=== PATIENT | female | born 1970 | race Hispanic/Latino ===

== ENCOUNTER 2017-05-09 22:11 | Emergency (ER) | payer OTHER ==
[~2017-05-09] VITALS: Ht 154.9 cm; Wt 55.3 kg
[~2017-05-09 22:11] MED LIST: CYCLOBENZAPRINE10 M1 PO
--- NOTE | 2017-05-09 22:52 | ED INFLUENZA/URI COMPLAINT ---
History of Present Illness General Chief Complaint: General Adult Stated Complaint: "IT FEELS LIKE THE FLU" Source: patient Exam Limitations: no limitations Vital Signs & Intake/Output Vital Signs & Intake/Output Vital Signs Date Time Temp Pulse Resp B/P B/P Pulse O2 O2 Flow FiO2 Mean Ox Delivery Rate 05/10 0024 99.3 99 18 105/69 96 Room Air 05/09 2313 99 Room Air 05/09 2220 101.5 97 18 114/82 99 Room Air ED Intake and Output 05/10 0000 05/09 1200 Intake Total Output Total Balance Patient 122 lb Weight Weight Estimated Measurement Method Allergies Coded Allergies: ampicillin (Intermediate, RASH, ITCH, TINGLING TO LIPS 02/24/17) Reconcile Medications Cyclobenzaprine HCl 10 MG TABLET 1 TAB PO Q8P PAIN OR SPASM Oseltamivir Phosphate (Tamiflu) 75 MG CAPSULE 1 CAP PO BID INFLUENZA Triage Note: RECEIVED 47 YO FEMALE C/O COUGHING X 3 DAYS, FEVER, NAUSEA, VOMITING ALL PO. PT REPORTS GENERALIZED ABDOMINAL PAIN AND POUNDING H/A. PT WITH 101.5 TEMP IN TRIAGE. PT REPORTS PAIN ALL OVER, CHEST PAIN WITH COUGHING. PT VOMITING ALL PO Triage Nurses Notes Reviewed? yes HPI: Patient presents with URI symptoms for the past 3 days. High fevers, myalgias since yesterday. Positive anorexia. Positive nausea and dry heaving. Last night she states that she was hallucinating because of her fevers. Patient denies any headache or blurry vision. She has a nonproductive cough. Past History Travel History Traveled to [place] past 21 day No Medical History Any Pertinent Medical History? 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 No Review of Systems Review of Systems Constitutional: Reports: see HPI, chills, fever. EENTM: Reports: no symptoms. Respiratory: Reports: see HPI, cough. Cardiovascular: Reports: no symptoms. GI: Reports: see HPI, nausea. Genitourinary: Reports: no symptoms. Musculoskeletal: Reports: see HPI, muscle pain. Skin: Reports: no symptoms. Neurological/Psychological: Reports: see HPI. Hematologic/Endocrine: Reports: no symptoms. Immunologic/Allergic: Reports: no symptoms. All Other Systems: Reviewed and Negative Physical Exam Physical Exam General Appearance: well developed/nourished, alert, awake, anxious, moderate distress Head: atraumatic, normal appearance Eyes: Bilateral: PERRL, EOMI. Ears, Nose, Throat: normal ENT inspection, DRY MUCUS MEMBRTANES Neck: normal inspection, supple, full range of motion Respiratory: normal breath sounds, chest non-tender, no respiratory distress, lungs clear Cardiovascular: regular rate/rhythm, normal peripheral pulses Gastrointestinal: normal bowel sounds, soft, non-tender, no organomegaly Extremities: normal inspection, normal capillary refill, normal range of motion, no edema Neurologic/Psych: no motor/sensory deficits, awake, alert, oriented x 3, normal gait, normal mood/affect Skin: intact, normal color, warm/dry Lymphatic: no anterior cervical facundo Core Measures Sepsis Present: No Sepsis Focused Exam Completed? No Progress Differential Diagnosis: influenza Plan of Care: Orders Procedure Date/time Status RAPID VIRAL INFLUENZA A 05/09 2223 Complete Microbiology 05/09 2228 NASOPHARYN: Influenza Virus A & B Rapid Smear - COMP INFLUENZA TYPE A Initial ED EKG: none Departure Departure Disposition: HOME OR SELF CARE Condition: Stable Clinical Impression Primary Impression: Influenza Referrals: Gabriela DING,Melissa Ogden (PCP/Family) Additional Instructions: DRINK PLENTY OF FLUIDS TAKE TAMIFLU TWICE A DAY FOR 5 DAYS RETURN IF SYMPTOMS WORSEN OR FOR ANY CONCERNS Departure Forms: Customer Survey General Discharge Information Prescriptions: Current Visit Scripts Oseltamivir Phosphate (Tamiflu) 1 CAP PO BID #10 CAP
[2017-05-09] MEDS ORDERED: TAMIFLU75 M1 PO (22:58)
[2017-05-10 06:30] VITALS: BP 113/72
== END 2017-05-10 07:00 ==
LOC: ERH 22:11
DX: J11.1 Influenza due to unidentified influenza virus with other respiratory manifestations (principal); Z72.0 Tobacco use; R11.2 Nausea with vomiting, unspecified
CPT/HCPCS: 87804; 87804-59; 96361; 96374; 96375; 99291; J0131; J1200; J1885; J2405; J2550; J3101

== ENCOUNTER 2017-05-18 16:56 | Emergency (ER) | payer OTHER ==
[~2017-05-18] VITALS: Ht 154.9 cm; Wt 55.3 kg
[~2017-05-18 16:56] MED LIST changes: +TAMIFLU75 M1 PO
--- NOTE | 2017-05-18 19:50 | ED SKIN/ALLERGY COMPLAINT ---
History of Present Illness General Chief Complaint: Skin Rash/ Abcess Stated Complaint: SEEN BY WALK-IN,SKIN INFECTION,ANTIBIOTIC NOT WORK Source: patient Exam Limitations: no limitations Vital Signs & Intake/Output Vital Signs & Intake/Output Vital Signs Date Time Temp Pulse Resp B/P B/P Pulse O2 O2 Flow FiO2 Mean Ox Delivery Rate 05/18 1703 97.3 86 18 123/86 98 Room Air Room Air Allergies Coded Allergies: ampicillin (Intermediate, RASH, ITCH, TINGLING TO LIPS 02/24/17) Reconcile Medications Clindamycin HCl (Cleocin HCl) 300 MG CAPSULE 1 CAP PO TID cellulitis Cyclobenzaprine HCl 10 MG TABLET 1 TAB PO Q8P PAIN OR SPASM Mupirocin Calcium (Bactroban) 2 % CREAM..G. 1 VENKATESH TOP TID cellulitis apply to affected area(s) Oseltamivir Phosphate (Tamiflu) 75 MG CAPSULE 1 CAP PO BID INFLUENZA Triage Note: PT TO ED WITH C/O STAFF INFECTION TO NOSE, BEING TREATED WITH 2 ANTIBIOTIC SINCE Sunday, NOT WORKING AND SENT IN TO ED. Triage Nurses Notes Reviewed? yes Onset: Gradual Duration: day(s): Timing: recent history Severity: moderate Location: face HPI: 47YO female presents to emergency department complaining of skin infection to nose. Patient states that she was seen and evaluated at a walk-in clinic 4 days ago for redness at the tip of her nose. Patient was started on Bactrim and acyclovir. Patient went back to urgent care today for reevaluation as her skin infection has not improved. Patient complaining of significant pain to the tip of her. Patient has been applying warm compresses. She denies fevers, chills, abdominal pain, vomiting, sore throat, ear pain, visual changes. Past History Travel History Traveled to [place] past 21 day No Medical History Any Pertinent Medical History? 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 No Review of Systems Review of Systems Constitutional: Reports: no symptoms. EENTM: Reports: no symptoms. Respiratory: Reports: no symptoms. Cardiovascular: Reports: no symptoms. GI: Reports: no symptoms. Genitourinary: Reports: no symptoms. Musculoskeletal: Reports: no symptoms. Skin: Reports: see HPI. Neurological/Psychological: Reports: no symptoms. Hematologic/Endocrine: Reports: no symptoms. Immunologic/Allergic: Reports: no symptoms. All Other Systems: Reviewed and Negative Physical Exam Physical Exam General Appearance: well developed/nourished, no apparent distress, alert, awake Head: atraumatic, normal appearance Eyes: Bilateral: normal appearance, PERRL, EOMI. Ears, Nose, Throat: normal pharynx, hearing grossly normal, ERYTHEMA AND TENDERNESS TO DISTAL NOSE WITH 3 1MM PUSTULES TO RIGHT NOSTRIL, TMs WNL Neck: normal inspection, supple, full range of motion Respiratory: normal breath sounds, no respiratory distress, lungs clear Cardiovascular: regular rate/rhythm Gastrointestinal: normal bowel sounds, soft, non-tender, no organomegaly Back: normal inspection, normal range of motion Extremities: normal inspection, normal range of motion Neurologic/Psych: awake, alert, oriented x 3 Skin: see erythema of nose as described above Progress Differential Diagnosis: abscess/cellulitis, allergic reaction, angioedema, contact dermatitis, shingles Plan of Care: Orders Procedure Date/time Status BLOOD CULTURE 05/18 1705 Active COMPREHENSIVE METABOLIC PANEL 05/18 1705 Complete CBC WITHOUT DIFFERENTIAL 05/18 1705 Complete Laboratory Tests 05/18/172035: CBC w Diff NO MAN DIFF REQ, RBC 4.42, MCV 92.3, MCH 31.1 H, MCHC 33.8, RDW 14.9 H, MPV 8.8, Gran % 70.3, Lymphocytes % 17.6 L, Monocytes % 8.6, Eosinophils % 3.2, Basophils % 0.3, Absolute Granulocytes 4.4, Absolute Lymphocytes 1.1 L, Absolute Monocytes 0.5, Absolute Eosinophils 0.2, Absolute Basophils 0 05/18/17 1749: Anion Gap 14, Estimated GFR > 60, BUN/Creatinine Ratio 21.4, Glucose 86, Calcium 9.5, Total Bilirubin 0.2, AST 17, ALT 26, Alkaline Phosphatase 68, Total Protein 7.4, Albumin 4.6, Globulin 2.8, Albumin/Globulin Ratio 1.6 Microbiology 05/18 1749 BLOOD: Blood Culture - RECD 05/18 1720 BLOOD: Blood Culture - RECD Patient given IV clindamycin here in the emergency department. Patient's vital signs are stable, blood work is within normal limits, she is nontoxic appearing. Cellulitis is limited to distal nose. Patient started on PO Clinda to take in addition to Bactrim. She was also prescribed Bactroban to apply topically. Patient to continue warm compresses. Patient will follow-up in 2 days for reevaluation. This patient appears well, we'll trial with different antibiotic as an outpatient. She will return with worsening symptoms or concerns. The patient agrees with the plan of care. Departure Departure Disposition: HOME OR SELF CARE Condition: Stable Clinical Impression Primary Impression: Cellulitis Qualifiers: Site of cellulitis: face Qualified Code: L03.211 - Cellulitis of face Referrals: Gabriela DING,Melissa Ogden (PCP/Family) Additional Instructions: Begin clindamycin antibiotics tomorrow morning. Continue current prescriptions as prescribed by urgent care. Continue to apply warm compress daily. You were also prescribed Bactroban ointment to apply inside your nose. Follow-up with your primary care physician on Sunday. If you cannot see primary care physician by Sunday please return to the emergency department or urgent care for reevaluation. Return sooner with any worsening symptoms or other concerns. Please note that there might be incidental findings in your evaluation that are unrelated to the current emergency department visit. Please notify your primary care doctor about this emergency department visit in order to obtain and review all of the testing performed so that these incidental findings can be monitored as needed. If you had an x-ray performed, please understand that some fractures may not be seen on the initial set of x-rays. If your symptoms persist you might need a repeat set of x-rays to check for such a fracture. If you had a laceration evaluated, please understand that foreign bodies such as glass or wood may not be visible to the naked eye or on plain x-rays. If the wound becomes red, swollen, increasingly more painful or if there is any drainage from the wound, please have it reevaluated by a physician for the possibility of a retained foreign body. If you're unable to follow up as outlined in the discharge instructions please return to the emergency department. Thank you for choosing the [facility] Emergency Department for your care. It was a pleasure to serve you today. Departure Forms: Customer Survey General Discharge Information Prescriptions: Current Visit Scripts Clindamycin HCl (Cleocin HCl) 1 CAP PO TID #21 CAP Mupirocin Calcium (Bactroban) 1 VENKATESH TOP TID #30 GM apply to affected area(s)
[2017-05-18 20:43] LABS: ABSOLUTE BASOPHIL COUNT 0 /CUMM (0.0-0.2); ABSOLUTE EOSINOPHIL COUNT 0.2 /CUMM (0.0-0.7); ABSOLUTE GRANULOCYTE CT 4.4 /CUMM (1.4-6.5); ABSOLUTE LYMPH COUNT 1.1 /CUMM (1.2-3.4); ABSOLUTE MONOCYTE COUNT 0.5 /CUMM (0.10-0.60); BASOPHIL % 0.3 % (0.0-2.0); EOSINOPHIL % 3.2 % (0-5); GRANULOCYTE % 70.3 % (42.2-75.2); HEMATOCRIT 40.7 % (37-47); MEAN CORPUSCULAR HGB 31.1 PG (27.0-31.0); MEAN CORPUSCULAR HGB CONC 33.8 G/DL (33.0-37.0); MEAN CORPUSCULAR VOLUME 92.3 FL (81.0-99.0); MEAN PLATELET VOLUME 8.8 FL (7.4-10.4); PLATELET COUNT 321 /CUMM (130-400); RBC DISTRIBUTION WIDTH 14.9 % (11.5-14.5); RED BLOOD CELL CT 4.42 /CUMM (4.20-5.40); WHITE BLOOD CELL COUNT 6.3 /CUMM (4.8-10.8)
[2017-05-18] MEDS ORDERED: CLEOCIN HCL300 M1 PO (22:03)
[2017-05-18] MEDS ORDERED: BACTROBAN15 GM TOP (22:03)
[2017-05-18 22:40] VITALS: BP 133/67
== END 2017-05-18 22:41 ==
LOC: ERH 16:56
PROVIDERS: Emergency Medicine
DX: J34.0 Abscess, furuncle and carbuncle of nose (principal); F17.210 Nicotine dependence, cigarettes, uncomplicated
CPT/HCPCS: 87040; 96374

== ENCOUNTER 2017-08-22 18:35 | Emergency (ER) | payer OTHER ==
[~2017-08-22] VITALS: Ht 154.9 cm; Wt 59.9 kg
[~2017-08-22 18:35] MED LIST changes: +BACTROBAN15 GM TOP; +CLEOCIN HCL300 M1 PO
[2017-08-22] MEDS ORDERED: DELTASONE20 MG PO (20:18)
[2017-08-22] MEDS ORDERED: HYDROXYZINE HCL50 M1 PO (20:18)
[2017-08-22] MEDS ORDERED: CIPRO500 M1 PO (20:18)
--- NOTE | 2017-08-22 20:19 | ED SKIN/ALLERGY COMPLAINT ---
History of Present Illness General Chief Complaint: Allergy Symptoms Stated Complaint: ALLERGIC REACTION Source: patient Exam Limitations: no limitations Vital Signs & Intake/Output Vital Signs & Intake/Output Vital Signs Date Time Temp Pulse Resp B/P B/P Pulse O2 O2 Flow FiO2 Mean Ox Delivery Rate 08/22 2111 98.1 78 16 113/68 98 Room Air 08/22 1836 98.6 98 18 126/88 98 Room Air ED Intake and Output 08/23 0000 08/22 1200 Intake Total 50 Output Total Balance 50 Intake, Oral 50 Patient 132 lb Weight Weight Reported by Patient Measurement Method Allergies Coded Allergies: ampicillin (Intermediate, RASH, ITCH, TINGLING TO LIPS 02/24/17) Reconcile Medications Ciprofloxacin HCl (Cipro) 500 MG TABLET 1 TAB PO BID UTI Clindamycin HCl (Cleocin HCl) 300 MG CAPSULE 1 CAP PO TID cellulitis Cyclobenzaprine HCl 10 MG TABLET 1 TAB PO Q8P PAIN OR SPASM Hydroxyzine Hydrochloride (Atarax) 50 MG TAB 1 TAB PO TID PRN ITCHING Mupirocin Calcium (Bactroban) 2 % CREAM..G. 1 VENKATESH TOP TID cellulitis apply to affected area(s) Oseltamivir Phosphate (Tamiflu) 75 MG CAPSULE 1 CAP PO BID INFLUENZA Prednisone (Deltasone) 20 MG TABLET 2 TAB PO ONCE DAILY ALLERGIC REACTION Triage Note: 47 YO FEMALE TO [facility] FOR ALLERGIX RXN TO bactrim. PT NOTED WITH HIVES ALL OVER BODY. DENIES SOB, REG RESP RATE NOTED Triage Nurses Notes Reviewed? yes Onset: Abrupt Duration: hour(s): (2), constant, continues in ED, getting worse Timing: single episode today Severity: moderate, severe Location: generalized Possible Factors: exposure to allergen No Modifying Factors: none Associated Symptoms: rash LMP (ages 10-50): unknown : No Patient currently breastfeeds: No HPI: 47 year old female with a history of asthma presents for evaluation of allergic reaction. Patient states she was started on Bactrim for UTIs took her first dose today and several hours later noted a generalized very itchy rash. She's never had this reaction before. She denies any swelling of her lips and throat no difficulty breathing or difficulty swallowing. No history of anaphylaxis. No other new medications. She's never taken Bactrim in the past. ([place]) Past History Travel History Traveled to [place] past 21 day No Medical History Any Pertinent Medical History? 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 No ([place]) Review of Systems Review of Systems Constitutional: Reports: no symptoms. EENTM: Reports: no symptoms. Respiratory: Reports: no symptoms. Cardiovascular: Reports: no symptoms. GI: Reports: no symptoms. Genitourinary: Reports: no symptoms. Musculoskeletal: Reports: no symptoms. Skin: Reports: see HPI, rash. Neurological/Psychological: Reports: no symptoms. Hematologic/Endocrine: Reports: no symptoms. Immunologic/Allergic: Reports: no symptoms. All Other Systems: Reviewed and Negative ([place]) Physical Exam Physical Exam General Appearance: well developed/nourished, no apparent distress, alert, awake , anxious Head: atraumatic, normal appearance Eyes: Bilateral: normal appearance, PERRL, EOMI. Ears, Nose, Throat: normal pharynx, normal ENT inspection, hearing grossly normal, no swelling of the lips tongue or throat patient is feeling secretions no stridor Neck: normal inspection, supple, full range of motion Respiratory: normal breath sounds, chest non-tender, no respiratory distress, lungs clear Cardiovascular: regular rate/rhythm, normal peripheral pulses Peripheral Pulses: 2+ radial (R), 2+ radial (L) Gastrointestinal: soft, non-tender Back: normal inspection, normal range of motion Extremities: normal inspection, normal range of motion, no edema Neurologic/Psych: no motor/sensory deficits, awake, alert, oriented x 3, normal gait, normal mood/affect Skin: intact, normal color, warm/dry, rash Skin Problem Location: generalized Skin Problem Character: urticarial, there are multiple uticariAL erythematous lesions on the bilateral upper and lower extremities neck and chest. No underlying erythemaSWELLING OR DISCHARGE Lymphatic: no anterior cervical facundo ([place]) Progress Differential Diagnosis: allergic reaction, anaphylaxis, angioedema, contact dermatitis, drug reaction, shingles, toxic shock syndrome, urticaria Plan of Care: Patient seen and evaluated. She retook Bactrim today for the first time and developed a very itchy rash later. No signs of airway involvement. Patient was medicated with Pepcid Benadryl and Solu-Medrol. She was monitored for 2 hours in the emergency department with improvement in her rash and itchiness. She'll be discharged home on a prednisone burst and advised to continue antihistamines as directed. Avoid Bactrim in the future. Prescription was changed to Cipro. Follow-up with primary care doctor discussed return precautions patient agrees the plan ([place]) Departure Departure Disposition: HOME OR SELF CARE Condition: Stable Clinical Impression Primary Impression: Allergic reaction caused by a drug Qualifiers: Encounter type: initial encounter Qualified Code: T78.40XA - Allergy, unspecified, initial encounter Referrals: Gabriela DING,Melissa Ogden (PCP/Family) Additional Instructions: Take prednisone as directed for the full course. Use hydroxyzine 50 mg every 8 hours as needed. He should also use Zantac or Pepcid Twice daily. Make a follow -up with YOUr primary care doctor as soon as possible. Stop taking Bactrim and start Cipro. Monitoring YOUr symptoms return with any concerns. Departure Forms: Customer Survey General Discharge Information Prescriptions: Current Visit Scripts Ciprofloxacin HCl (Cipro) 1 TAB PO BID #14 TAB Prednisone (Deltasone) 2 TAB PO ONCE DAILY #10 TAB Hydroxyzine Hydrochloride (Atarax) 1 TAB PO TID PRN ITCHING #30 TAB ([place]) PA/FISH CHECKER Co-Sign Statement Statement: ED Attending supervision documentation- I saw and evaluated the patient. I have also reviewed all the pertinent lab results and diagnostic results. I agree with the findings and the plan of care as documented in the PA's/FISH CHECKER's documentation. x I have reviewed the ED Record and agree with the PA's/FISH CHECKER's documentation. [] Additions or exceptions (if any) to the PAs/FISH CHECKER's note and plan are summarized below: [] (Todd DING,Zeeshan)
[2017-08-22 21:11] VITALS: BP 113/68
== END 2017-08-22 21:12 ==
LOC: ERH 18:35
DX: T36.91XA Poisoning by unspecified systemic antibiotic, accidental (unintentional), initial encounter (principal)
CPT/HCPCS: 96374; 96375; J1200; J2930